=== PATIENT | female | born 1990 | race Hispanic/Latino ===

== ENCOUNTER → 2019-08-17 18:05 | Outpatient (CLI) | payer BC, SELFPAY ==
[2019-08-17 19:58] LABS: Chlamydia Trachomatis by PCR Negative (Negative); Neisserai gonorrhoeae by PCR Negative (Negative); Probe Check PASS; Sample Adequacy Control PASS; Specimen Processing Control PASS
== END ==
PROVIDERS: Visit Provider Obstetrics & Gynecology
DX: Z11.3 Encounter for screening for infections with a predominantly sexual mode of transmission (principal)
CPT/HCPCS: 87491; 87591

== ENCOUNTER → 2019-08-21 15:53 | Outpatient (CLI) | payer BC, SELFPAY ==
[2019-08-21 16:34] LABS: Absolute Lymphocyte Count 1.65 X10^3/uL (0.83-4.51); Absolute Neutrophil Count 6.6 X10^3/uL (2.0-7.7); Basophil# 0.01 X10^3/uL; Basophil% 0.1 % (0-1); Color, Urine Yellow (Yellow); Eosinophils% 1.1 % (0-5); Glucose, Dipstick Normal (Normal); Hematocrit 39.4 % (37-47); Hemoglobin 13.1 g/dL (12.0-15.0); Ketone-Dipstick 5 mg/dl (Negative); Leukocyte Esterase-Dipstick Negative /ul (Negative); Lymphocyte # 1.65 X10^3/ul (4.0); Lymphocyte % 18.6 % (19-41); Mean Corp Hgb Conc 33.2 g/dL (32-36); Mean Corpuscular Hgb 27.3 pg (27.0-32.0); Mean Corpuscular Volume 82.1 fL (81-99); Mean Platelet Vol. 10.4 fl (6.2-12.0); Monocyte% 5.6 % (0-10); NRBC Flagged by Analyzer 0 % (0-5); Neutrophil # 6.57 X10^3/uL (2.7-7.7); Neutrophil % 74.3 % (47-70); Nitrite-Dipstick Negative (Negative); Occult Blood-Urine 10 /ul (Negative); Platelet Count 239 K/mm3 (150-450); Protein-Dipstick 15 mg/dl (Negative); RBC Distribution Width SD 41.6 fl (35.1-43.9); Urine Bilirubin Dipstick Negative (Negative); Urine Clarity Cloudy (Clear); Urine Urobilinogen Normal (Normal); White Blood Count 8.9 K/mm3 (4.4-11.0)
[2019-08-21 17:10] LABS: Thyroid Stim Hormone (TSH) 0.73 uIU/mL (0.358-3.74)
[2019-08-22 10:17] LABS: HIV - WCH Non-Reactive (Nonreactive); Hepatitis B Surface Antigen Non-Reactive (Nonreactive); Hepatitis C Antibody Non-Reactive (Nonreactive); Rubella IgG 71.5 IU/mL
[2019-08-24 02:31] LABS: Prenatal RPR NONREACTIVE (NONREACTIVE)
== END ==
PROVIDERS: Referring Provider Obstetrics & Gynecology; Visit Provider Obstetrics & Gynecology
DX: Z34.81 Encounter for supervision of other normal pregnancy, first trimester (principal)
CPT/HCPCS: 36415; 81002; 84443; 85025; 86703; 86762; 86803; 87340

== ENCOUNTER → 2019-11-29 15:52 | Outpatient (CLI) | payer BC, SELFPAY ==
[2019-11-29 17:13] LABS: Hematocrit 32.3 % (37-47); Hemoglobin 10.3 g/dL (12.0-15.0); Mean Corp Hgb Conc 31.9 g/dL (32-36); Mean Corpuscular Volume 81.6 fL (81-99); Mean Platelet Vol. 10.3 fl (6.2-12.0); Platelet Count 229 K/mm3 (150-450); RBC Distribution Width CV 13.9 % (11.6-14.6); RBC Distribution Width SD 40.8 fl (35.1-43.9); Red Blood Count 3.96 M/mm3 (4.2-5.4); White Blood Count 6.9 K/mm3 (4.4-11.0)
[2019-11-29 17:59] LABS: Glucose Challenge Gest 1H 50g 94 mg/dL (70-140)
== END ==
PROVIDERS: Visit Provider Obstetrics & Gynecology
DX: Z34.83 Encounter for supervision of other normal pregnancy, third trimester (principal)
CPT/HCPCS: 36415; 82950; 85027

== ENCOUNTER → 2020-01-03 | Outpatient (CLI) | payer BC, SELFPAY | END | disposition home or self-care (01) | LOC: LABSPEC 15:27 | PROVIDERS: Visit Provider Obstetrics & Gynecology | DX: Z34.83 Encounter for supervision of other normal pregnancy, third trimester (principal); R30.0 Dysuria | CPT/HCPCS: 87086; 87088 ==

== ENCOUNTER → 2020-01-25 16:35 | Outpatient (CLI) | payer BC, SELFPAY | END | disposition home or self-care (01) | PROVIDERS: Visit Provider Obstetrics & Gynecology | CPT/HCPCS: 87081 ==

== ENCOUNTER → 2020-02-08 17:19 | Outpatient (CLI) | payer BC, SELFPAY | PROVIDERS: PCP Family Medicine; Referring Provider Obstetrics & Gynecology; Visit Provider Obstetrics & Gynecology | DX: Z11.59 Encounter for screening for other viral diseases (principal) | CPT/HCPCS: 87635; C9803; U0003 ==

== ENCOUNTER 2020-02-13 05:10 | Inpatient (IN) | payer BC, SELFPAY ==
--- NOTE | 2020-02-12 17:18 | PCM.HP.BLA ---
History and Physical Date of Admission: 02/13/20 [facility] [place] ANTEPARTUM RECORD - HISTORY AND PHYSICAL (02/12/2020) Name: JEANNEYARELISMC SMITHJASSABRINA History of This : This is a 29-year-old Ab1 who presents for her second section at 39+ weeks gestation. care has been uneventful except for prior section. OB Physician: BRIGITTE 's Physician: DEANGELO ...................................................................... : 1990 Age: 29 Address: [address] [place] [address] Phone: H) [phone] Insurance Carrier: [employer] [facility] [id number] Emergency Contact: SANTINO Barclay [phone] ...................................................................... Final ISAAK: 02/17/20 By Ultrasound: 14 weeks 2 days PARITY: (G-Total Pregnancies P-Fullterm,Premature,Induced AB,Spont AB, Ectopics, Multiple,Living) ISAAK CONFIRMATION: By LMP: 05/18/19 Final ISAAK: 02/17/20 OB PROBLEM LIST: planned Hx of migraine headaches Prior C/S --wants repeat Some language barrier (from [place]) Undecided about AFP and CF testing Used to smoke, but quit 8 years ago ALLERGIES: No Known Drug Allergies MEDICATIONS: folic acid 400 mcg tablet 2qd Macrobid 100 mg capsule One pill by mouth twice a day phenazopyridine 200 mg tablet One pill by mouth three times a day DHA 200 mg capsule 1 PO QD SOCIAL HISTORY: Smoking - used to smoke but quit Alcohol Use - denies drinking Diet - balanced Diet Lifestyle - moderate stress lifestyle and Exercise - minimal 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 - [employer] 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 Drug Use - denies use of street drugs Sexual Activity - [employer] Residence - lives with Place of - [facility] Spouse-Sig Other Name - Santino Palomares Spouse-Sig Other Occupation - [employer] Spouse-Sig Other Phone No - [phone] Children Name(s) - Reyna PRIOR DELIVERY HISTORY DEL DATE GEST LAB WT LB WT OZ TYPE ANES LABOR TX 01 Nov 06 6 0 0 0 Sab General No 18 Aug 16 40 0 7 5 C-Sec Spinal NO ANTEPARTUM FLOW CHART VISIT GE RTC FU F F SD U U DATE WK MD WKS HT PN HR M SS BP ED WT SD GL D EF ST __ ____ ___ __ __ ___ __ __ __ ___ __ __ __ ___ __ 28 Jan 38 JMW 1 37 + + 96/58 0 172 tr ne 22 Jan 37 JM 1 37 V + + 98/68 0 171 - - cl 15 Jan 36 JMW 1 36 V + + 90/70 0 172 tr - ft 50 -2 07 Jan 35 JMW 2 35 + + 102/76 0 169 1+ - 23 Sep 33 JMW 2 34 + + 100/60 0 169 1+ - 09 Sep 31 JMW 2 32 + + 112/68 0 169 - - 19 Dec 07 JMW 3 28 + + 102/70 0 166 tr - Nov 02 JMW 4 24 + + 100/66 0 164 - - 24 Sep 29 JMW 4 20 + + 90/70 0 160 tr - 11 August 23 JMW 5 + US 110/60 0 154 tr - ANTEPARTUM NOTE(S): Feb 07 2020: Good FM Feb 01 2020: Jan 24 2020: feeling well. GBS and LARC today. Jan 17 2020: Good FM, some popping Jan 03 2020: ?UTI; C and S sent; good FM Dec 20 2019: Doing Well Nov 29 2019: 28 week labs, Good FM Nov 01 2019: Glucola Given and Good FM Oct 04 2019: feeling well. Aug 21 2019: Sono Today, Nausea Better,Fatigue remains COMPREHENSIVE ANTEPARTUM NOTE(S): Feb 07 2020: Sabrina is here for PNV and pre-op for scheduled c-sec 02-13-20. States good FM. No edema noted in hands or feet. Urine dipped tr and neg. Says she feels good and is without complaints. Consents signed, Ensure given, instruction pamphlet given, test for Covid instructions given. Questions answered. LSS Feb 01 2020: Sabrina is her today for her PNV. States that she has pelvic floor pressure. States the top of her stomach has painful stretching. SVE offered today and accepted. Medications and allergies reviewed today. No other complaints or concerns expressed today. LJW Feb 01 2020: 37wk, hx of c/s for repeat c/s 02/13/20. GBS neg. JM Jan 31 2020: GBS cx negative. Jan 30 2020: H taken to OB. tkg Jan 17 2020: Sabrina is here for a PNV. Good FM. No edema present. Reports a cracking sound with FM. Feels popping with it. Pt states her can hear it too while sitting next to her. No other concerns. Informed of GBS and LARC at next visit. MK Jan 03 2020: Sabrina is here for a PNV. She is doing well. Good FM. No edema. States that for >6 weeks she has pain and burning when urinating and cleaning herself in the shower. UA long dip in office showed leuk. 125, prot 1+, sg 1.030, ket 5. Medications and allergies reviewed today. No other questions or concerns expressed today. LJW Nov 29 2019: Sabrina is here for a PNV. She is doing well. Good FM. No edema. Has occasional back pain, suggested she try a maternity belt to relieve it. 28 week labs today, consent signed. MK Nov 01 2019: Sabrina is her for her PNV today. She is doing good. Good FM. Medications and allergies reviewed today. Questions answered. Glucola drink given. LJ Aug 23 2019: TELEHEALTH NOB VISIT. Sabrina is a 28 year old A1 with an ISAAK of 02/17/2020, current GA is 14 w 4 d. She and , Santino, have a daughter at home who was delivered by C/S in [facility] in 2016. Past history updated. She would like to have a at [facility], and will breastfeed. Discussed registering for guided group tour of [facility] OB unit. Office ed materials provided at her missed menses visit, reviewed how to contact the office during and after hours, emergencies/danger signs to report, and common OTC medications approved/not approved for use during . Office practice patterns reviewed. EPDS completed at her missed menses visit, along with Genetics Screening form. She is undecided about AFP and CF testing, with consent signed at her missed menses visit. Sabrina states that earlier N/V has resolved, as has the fatigue she had been experiencing. Round ligament pain reviewed. Reviewed s/s of a UTI and advised to call the office if a UTI is suspected. She is a non-smoker, having quit 8 years ago, and she denies use of drugs or ETOH. She takes an OTC multivitamin and Folic Acid; discussed switching to a vitamin with DHA. Sabrina states that she has had migraine headaches in the past, and that she is concerned about having them with this ; she will call the office if Tylenol does not help headaches. water and dietary needs reviewed, including recommended weight gain, water needs, limiting caffeine to one cup a day, caloric needs, and limiting empty calories; food safety also discussed. Reviewed lifting restrictions. She reports that she had been walking daily before stay at home orders for Covid-19; she is considering when she can restart, or what she can do in home for exercise. Sabrina states that she has no questions following 35 minute NOB visit, and she states that she understands all information provided during same. Some language barrier, as she is from [place]. AW Aug 17 2019: Sabrina is here for a missed menses appt. LMP 05/18/2019. Has experienced some nausea but it has subsided. Updated medications and allergies. Pt has NKDA. Is currently taking folic acid. Provided information packet along with book. GC/CHL testing today, consents signed. MK Aug 17 2019: ok Jun 14 2019: Sabrina presents for her new pt annual. She is a 28yo female with slightly irregular menses. Pt is desiring and has been attempting this for the past 6mos. LMP 05/16/19, and lasted 9days, but sts she skipped a period in April. She is a G 2, P 1 with hx of 6wk SAB. Pt is currently taking Folic Acid. No other concerns voiced. PHQ score is 3. JT Jun 14 2019: in [place] for CAN without labor. REVIEW OF SYSTEMS: GENERAL - Denies fever, or chills SKIN - Denies rash, new skin lesions, or change in moles EYES - Denies blurred vision, or change in visual acuity EARS - Denies ear pain, or difficulty hearing NOSE - Denies nasal congestion, discharge, or bleeding MOUTH - Denies sore throat, or difficulty swallowing NECK - Denies pain or swelling RESPIRATORY - Denies shortness of breath, cough, wheezing CARDIOVASCULAR - Denies palpitations, chest pain, orthopnea, PND, peripheral edema, syncope or claudication GASTROINTESTINAL - Denies nausea, vomiting, diarrhea, constipation, Denies abdominal pain, melena and or bright red blood GENITOURINARY - Denies dysuria, frequency of urination, urgency, or hesitancy MUSCULOSKELETAL - Denies joint or muscle pain, or back pain NEUROLOGICAL - Denies localized numbness, weakness, or tingling PSYCHIATRIC - Denies depression, anxiety, substance abuse or suicide attempts ENDOCRINE - Denies heat or cold intolerance, weight loss or gain, increasing thirst HEMATO-IMMUNOLOGIC - Denies easy bruising, bleeding, oral ulcerations or recurrent infections GENETICS SCREENING: Age 35+ years: No Thalassemia: No Neural Tube Defect: No Down Syndrome: No ANGELIQUE-SACHS: No Sickle Cell Disease: No Hemophilia: No Musc. Dystrophy: No Cystic Fibrosis: No-declines screening [place] Chorea: No Mental Retardation: No Fragile X: No Other genetic: No Other defects: No SABs/still births: No Drugs since LMP: No INFECTION HISTORY: High risk AIDS: No High risk Hepatitis: No Exposed to TB: No Exposed to Herpes: No Rash/viral illness since LMP: No History of STD: No MENSTRUAL HISTORY: *Menses Amount/Duration: 5-10daysMenses Regularity: Irregular* PAST SUMMARY: PARITY: 1. Total Pregnancies............ 3 2. Full Term Pregnancies........ 1 3. Premature.................... 0 4. Abortions - Induced.......... 0 5. Abortions - Spontaneous...... 1 6. Ectopics..................... 0 7. Multiple Births.............. 0 8. Living Children.............. 1 PAST #1: Date of :.................. 11/10/05 Gestation Weeks:................ 6 Length of labor(hours):......... 0 Sex:............................ Weight-lbs:............... 0 Weight-oz:................ 0 Type of Delivery:............... Sab Type of Anesthesia:............. General Place of Delivery:.............. [place] Treatment of Labor?:.... No Comment: PAST #2: Date of :.................. 11/28/15 Gestation Weeks:................ 40 Length of labor(hours):......... 0 Sex:............................ F Weight-lbs:............... 7 Weight-oz:................ 5 Type of Delivery:............... C-Sect Type of Anesthesia:............. Spinal Place of Delivery:.............. [place] Treatment of Labor?:.... NO Comment: CAN PHYSICAL EXAMINATION General Appearence: 29 yo female in no acute distress Vital Signs: AF, VSS Heart: RRR without rubs or gallops Lungs: CTA x 2 Breasts: deferred Abdomen: gravid Pelvis: Cervix: Presentation: cephalic Station: Fetus: Size: AGA Movement: present Heart: present Labs for : SABRINA FERRELL since 05/23/2019 ORDER DATEIN DESCRIPTION VALUE UNITS RANGE A+ COMMENT 36+ Week Labs 01/25/20 Group B Strep NEGATIVE - scanned Negative Reviewed by ROSENDO Urine Culture 01/03/20 Urine Culture scanned No growth Reviewed by KYLEE 24-35 Week Labs 11/29/19 HCT/HGB 32.3/10.3 Scanned 1 Hour Post Glucola 94 scanned Reviewed by KYLEE [facility] OB Labs 08/21/19 Blood Type O Rh Type POS Antibody Screen NEGATIVE Negative Hemoglobin Initial OB 13.1 Hematocrit Initial OB 39.4 PLT 239 Urine Protein 15 Negative Urine Glucose NEG Negative Reviewed by KYLEE GC-Chlamydia 08/17/19 Chlamydia negative (Scanned) Negative GC negative (Scanned) No Growth Reviewed by KYLEE PAP Smear 06/14/19 PAP Test scanned Normal Reviewed by KYLEE Impression /Plan: 39 weeks 3 days gestation intrauterine for repeat section. Preparations in progress for delivery.
[2020-02-13] VITALS (16 sets, daily range): BP systolic 84–104; BP diastolic 47–67; PULSE 69–100; RESP 12–18; TEMP 36.1–36.8; O2SAT 95–100; BMI 30.2
[2020-02-13] MEDS: Lactated Ringers 1,000 ML 999 ML IV (05:35)
[2020-02-13 05:45] LABS: Absolute Lymphocyte Count 1.82 X10^3/uL (0.83-4.51); Absolute Neutrophil Count 6.7 X10^3/uL (2.0-7.7); Basophil# 0.02 X10^3/uL; Basophil% 0.2 % (0-1); Eosinophil# 0.05 X10^3/uL; Eosinophils% 0.6 % (0-5); Hematocrit 31.1 % (37-47); Hemoglobin 9.5 g/dL (12.0-15.0); Lymphocyte # 1.82 X10^3/ul (4.0); Mean Corp Hgb Conc 30.5 g/dL (32-36); Mean Corpuscular Hgb 22.5 pg (27.0-32.0); Mean Corpuscular Volume 73.5 fL (81-99); Mean Platelet Vol. 10.8 fl (6.2-12.0); Monocyte# 0.41 X10^3/uL; Monocyte% 4.5 % (0-10); NRBC Flagged by Analyzer 0 % (0-5); Neutrophil # 6.72 X10^3/uL (2.7-7.7); Neutrophil % 73.9 % (47-70); Platelet Count 236 K/mm3 (150-450); RBC Distribution Width CV 17.2 % (11.6-14.6); RBC Distribution Width SD 45.8 fl (35.1-43.9); Red Blood Count 4.23 M/mm3 (4.2-5.4); White Blood Count 9.1 K/mm3 (4.4-11.0)
[2020-02-13] MEDS: Acetaminophen 500 MG Tablet 1000 MG PO ×3 (06:07→18:11)
[2020-02-13] MEDS: Lactated Ringers 1,000 ML 150 ML IV (06:30)
[2020-02-13] MEDS: Sodium Citrate/Citric Acid 30 ML UDC PO (07:06)
--- NOTE | 2020-02-13 07:13 | OP.PCM_ITS ---
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 Indication: This is a 29-year-old who presents for her second at 39+ weeks gestation. care has otherwise been uneventful. The patient has been counseled regarding the risk and indications of this procedure including the possibility of bleeding infection and injury to surrounding structures such as bowel bladder. All questions were answered. Procedure: Patient was taken to the operating room where after spinal anesthesia was placed, the patient was prepped and draped in usual sterile fashion and a Causey catheter was placed. The abdomen was entered through the patient's prior Pfannenstiel incision and peritoneum was entered bluntly. After developing a bladder flap on the lower uterine segment a low transverse incision was made on the uterus and head was easily delivered onto the operative field the nose mouth and oropharynx were bulb suctioned. Subsequently a viable female infant was born with Apgars of 9/10. The was noted to cry move all extremities vigorously on the operative field. The umbilical cord was doubly clamped and ligated and infant handed to the nursery personnel who were present for the delivery. Placenta was delivered and noted to be 3 vessels and normal. Uterus was exteriorized and remaining placental tissue was removed. The uterus was then closed in 2 layers first with running locked 0 Vicryl suture followed by a second imbricating layer with 0 Vicryl suture. 0 Vicryl suture was then used in a horizontal mattress interrupted fashion to affect final hemostasis of the uterine incision line. Normal fallopian tubes and ovaries were visualized and the uterus was returned to the pelvis. Hemostasis was noted and rectus abdominis muscles were reapproximated in the midline with interrupted Number 0 Vicryl suture in a horizontal mattress fashion. Fascia was closed with running Number 1 PDS Strata fix suture. Subcutaneous tissue was irrigated with copious amouts of saline solution and then closed with running 3-0 Vicryl suture. Skin was closed with 4-0 monocryl suture in a running subcuticular fashion. Steri strips and a Mepilex dressing were placed across the incision. The patient tolerated the procedure well and was taken to the recovery room in satisfactory condition. Sponge, needle, and instrument counts were all reportedly correct. EBL was less than 500 cc. Ancef 2 gms IV was given prior to the procedure. Amniotic Fluid Description: Clear Placenta Disposition: [facility] Specimen(s) sent to pathology: None Drain: Causey to straight drain Fluids Replaced: Crystalloid Cord Entanglement: None Cord Vessel Description: 3 Vessels Esitmated Blood Loss (ml): 500 cc Infant Gender: Female (1 minute): 9 (5 minute): 10 Antibiotic Given: Ancef 2 grams IV x1 Pt instructed on risks of surgery: Bleeding, Infection, Injury to surrounding structure(s) including bowel and bladder - Admit VTE Documentation VTE Present on Admission: Yes VTE Mechan Device Prophylaxis: SCD's
--- NOTE | 2020-02-13 07:16 | DCINST_ITS ---
Discharge Diet: No Restrictions Discharge Activity: May not drive while taking narcotic pain medications., May Shower, May Take a Tub Bath May resume sexual activity in: 4-6 weeks Lifting Restrictions: 20 pounds Additional Activity Instructions:: Nothing in the vagina for 4-6 weeks. You may return to work/school in 6 weeks. Call your doctor if your incision/area has: Continuous Slow Oozing, Sudden Increased Bleeding, Increased Pain/ Swelling, Increased Redness, Foul Smelling Discharge Call your doctor if you observe: Fever of 101 or Higher, Inability to urinate, Inability to have a bowel movement, Using more than one pad per hour Additional Instructions: If you experience any of the following, contact your healthcare provider. * Bleeding that soaks a pad every hour for 2 hours * Fever 100.4 or higher * Unrelieved incision or abdominal pain * Swelling, redness, discharge or bleeding from your incision or episiotomy site * Your incision begins to separate * Problems urinating (including inability to urinate or burning while urinating). * Visual changes * Severe headache * Flu-like symptoms * Pain or redness in one of both of your breasts * Pain, warmth, tenderness or swelling in your legs, especially the calf area * Frequent nausea and vomiting * Symptoms of depression or anxiety If you experience any of the following, call 911 or go to the nearest Emergency Room. * Chest pain * Problems breathing * Seizure activity * Partial or complete paralysis of a body part, slurred speech, weakness or drooping of the face, or a sudden inability to walk or hold your balance Allergies/Adverse Reactions: Allergies No Known Allergies Allergy (Verified 02/13/20 05:27) Medications to take at Discharge Docusate Sodium [Colace] 100 mg PO BID PRN PRN #60 cap 02/13/20 Folic Acid 1 ea PO DAILY 02/13/20 Oxycodone [Oxyir] 5 mg PO Q6H PRN PRN 7 Days #20 tablet 02/13/20 Vits [Prenatabs FA] 1 tab PO DAILY 02/13/20 The following prescriptions were given: Docusate Sodium [Colace] 100 mg PO BID PRN PRN #60 cap PRN Reason: Constipation Transmission Status: Pending to [facility] Oxycodone [Oxyir] 5 mg PO Q6H PRN PRN 7 Days #20 tablet PRN Reason: Pain Score 6-10 Transmission Status: Sent to [facility] Follow-Up: Call to make an appointment with your doctor for an incision check in 1-2 weeks. You will also need a 6 week post- follow up appointment. Test results from this visit will be discussed in further detail at your follow- up appointment, if applicable. Please Follow Up With: Audi Palacio MD - [phone] When: Call to make an appointment for an incision check in 2 weeks. Primary Care Physician: Ryan Izquierdo MD [Primary Care Provider] -
[2020-02-13] MEDS: Cefazolin 2 GM in 0.9% Normal Saline 100 ML IV (07:25)
[2020-02-13] MEDS: Oxytocin 30 units/NS 500 ml 30 UNITS/500 ML IV.SOLN 167 UNITS IV (08:45)
[2020-02-13] MEDS: Lactated Ringers 1,000 ML 100 ML IV (12:04)
[2020-02-13] MEDS: Ketorolac 30 MG/ML Syringe IV ×2 (14:21→20:41)
[2020-02-13] MEDS: Cefazolin 1 GM/50 ML BAG IV (15:39)
[2020-02-14] VITALS: BP 88/48; PULSE 82; RESP 16; TEMP 36.8
[2020-02-14] MEDS: Acetaminophen 500 MG Tablet 1000 MG PO ×3 (00:24→13:11)
[2020-02-14] MEDS: Cefazolin 1 GM/50 ML BAG IV (00:24)
[2020-02-14] MEDS: Ketorolac 30 MG/ML Syringe IV ×2 (02:21→09:05)
[2020-02-14 04:00] VITALS: BP 89/49; PULSE 78; RESP 16; TEMP 36.7
[2020-02-14 06:04] LABS: Hematocrit 25.8 % (37-47); Mean Corpuscular Hgb 22.9 pg (27.0-32.0); Mean Corpuscular Volume 73.7 fL (81-99); Mean Platelet Vol. 10.7 fl (6.2-12.0); Platelet Count 199 K/mm3 (150-450); RBC Distribution Width CV 17.4 % (11.6-14.6); RBC Distribution Width SD 46.8 fl (35.1-43.9); White Blood Count 8.9 K/mm3 (4.4-11.0)
[2020-02-14 07:34] VITALS: BP 82/49; PULSE 72; RESP 15; TEMP 36.4; O2SAT 98
--- NOTE | 2020-02-14 07:34 | PCM.PN.OB ---
Subjective: Patient without complaints. Breast-feeding going well. Tolerating diet well. Denies flatus. Wants to go home later today if baby is able to go. Objective: Wound is clean, dry, intact with Mepilex dressing dry. Hemoglobin okay. Good urine output. - Physical Exam Vitals/I&O's: Vital Signs Temp Pulse Resp BP Pulse Ox 98.1 F 78 16 89/49 L 98 02/14/20 04:00 02/14/20 04:00 02/14/20 04:00 02/14/20 04:00 02/13/20 20:00 Oxygen Delivery Method Room Air Weight: 176 lb 2.389 oz Body Mass Index (BMI) 30.2 Intake and Output for Last 24 Hours 02/12/20 02/13/20 02/14/20 23:59 23:59 23:59 Intake Total 2653.33 / 2653.33 50 / 50 Output Total 1200 / 1200 400 / 400 Balance 1453.33 / 1453.33 -350 / -350 Laboratory Results 02/14/20 05:45: WBC 8.9, RBC 3.50 L, Hgb 8.0 L, Hct 25.8 L, MCV 73.7 L, MCH 22.9 L, MCHC 31.0 L, RDW Std Deviation 46.8 H, RDW Coeff of Keith 17.4 H, Plt Count 199, MPV 10.7 Current Medications Acetaminophen (Acetaminophen 500 Mg Tablet) 1,000 mg PO Q6 [facility] Last Admin: 02/14/20 06:12 Dose: 1,000 mg Documented by: Bisacodyl (Bisacodyl 10 Mg Suppository) 10 mg RECTAL UD PRN PRN Reason: If no BM Diphenhydramine HCl (Diphenhydramine 25 Mg Capsule) 25 mg PO Q6H PRN PRN PRN Reason: ITCHING Stop: 02/14/20 08:47 Hydrocortisone (Hydrocortisone 2.5% Crm) 1 applic TOPICAL TID PRN PRN; Protocol PRN Reason: Discomfort Ibuprofen (Ibuprofen 600 Mg Tablet) 600 mg PO Q6H EVELIO Ketorolac Tromethamine (Ketorolac 30 Mg/Ml Syringe) 30 mg IV Q6H EVELIO Stop: 02/14/20 08:01 Last Admin: 02/14/20 02:21 Dose: 30 mg Documented by: Methylergonovine Maleate (Methylergonovine 0.2 Mg/Ml Ampul) 0.2 mg IM X1 PRN PRN Reason: Uterine Atony Naloxone HCl (Naloxone 0.4 Mg/Ml Syringe) 0.02 mg IV Q1M PRN PRN Reason: RR <10 and pt unresponsive Ondansetron HCl (Ondansetron 4 Mg/2 Ml Vial) 4 mg IV Q4H PRN PRN PRN Reason: Nausea Oxycodone HCl (Oxycodone 5 Mg Tablet) 5 - 10 mg PO Q4H PRN PRN PRN Reason: Pain Score 4-10 Prochlorperazine Edisylate (Prochlorperazine 10 Mg/2 Ml Vial) 10 mg IV Q6H PRN PRN PRN Reason: NAUSEA Senna/Docusate Sodium (Senna/Docusate Sodium 1 Tablet) 0 tablet PO DAILY EVELIO Last Admin: 02/13/20 09:25 Dose: Not Given Documented by: Simethicone (Simethicone 80 Mg Tablet) 80 mg PO PCHS PRN PRN Reason: Indigestion/stomach pain Sodium Chloride (0.9% Saline Lock 10 Ml Syringe) 5 - 15 ml IV UD PRN PRN Reason: SALINE FLUSH Medical Necessity - Tobacco Use Smoking Status: Former smoker Assessment/Plan Doing well postoperative day #1 status post repeat . Will release to home with routine instructions if baby is able to go home and patient demonstrates bowel function with flatus or BM.
[2020-02-14] MEDS: 0.9% Saline Lock 10 ML Syringe IV (09:06)
[2020-02-14] MEDS: Senna/Docusate Sodium 1 Tablet PO (09:06)
[2020-02-14 13:16] VITALS: BP 76/55; PULSE 75; RESP 16; TEMP 36.4
[2020-02-14] MEDS: Ibuprofen 600 MG Tablet PO (14:42)
== END 2020-02-14 16:20 | disposition home or self-care (01) | DRG 788 ==
PROVIDERS: Admitting Provider Obstetrics & Gynecology; PCP Family Medicine; Referring Provider Obstetrics & Gynecology; Visit Provider Obstetrics & Gynecology
PROC: 10D00Z1 Extraction of Products of Conception, Low, Open Approach (ICD-10-PCS; CPT 59514; principal; 2020-02-13 07:15)
DX: O34.211 Maternal care for low transverse scar from previous cesarean delivery (principal); Z37.0 Single live birth; Z3A.39 39 weeks gestation of pregnancy; Z87.891 Personal history of nicotine dependence
CPT/HCPCS: 85025; 85027; 86850; 86900; 86901; 99218; J7120; A4216; G0378

== ENCOUNTER → 2022-05-08 | Outpatient (CLI) | payer BC, SELFPAY ==
[2022-05-14 19:41] LABS: HPV APTIMA, High Risk Negative (Negative)
== END | disposition home or self-care (01) ==
LOC: LABSPEC 16:31
PROVIDERS: PCP Family Medicine; Visit Provider Obstetrics & Gynecology
DX: Z12.4 Encounter for screening for malignant neoplasm of cervix (principal)
CPT/HCPCS: 87624; 88175; G0145